=== PATIENT | male | born 1985 | race Caucasian/White ===

== ENCOUNTER 2016-12-24 10:26 | Emergency (ER) | payer MEDICAID ==
[~2016-12-24] VITALS: Ht 180.3 cm; Wt 130.2 kg
[2016-12-24 10:34] VITALS: BP_SYST 135
[2016-12-24 11:44] VITALS: BP_SYST 130
== END 2016-12-24 11:28 | disposition home or self-care (01) ==
LOC: SED 10:26
DX: K02.9 Dental caries, unspecified (principal); K04.7 Periapical abscess without sinus; E11.9 Type 2 diabetes mellitus without complications; Z90.89 Acquired absence of other organs
CPT/HCPCS: 99283

== ENCOUNTER 2017-02-21 12:03 | Emergency (ER) | payer MEDICAID ==
[~2017-02-21] VITALS: Ht 180.3 cm; Wt 127.0 kg
[2017-02-21 12:03] VITALS: BP_SYST 139
[2017-02-21] MEDS ORDERED: HYDROmorphone 1 MG INJ. 1 MG/ML AMPUL IVP ONE (13:00)
[2017-02-21] MEDS ORDERED: CEFAZOLIN 1 GM IVPB PREMIX 50 ML IV ONE (13:00)
[2017-02-21] MEDS ORDERED: VANCOMYCIN HCL 1,000 MG in NS 250 ML IV ONE (13:00)
[2017-02-21] MEDS ORDERED: ONDANSETRON HCL 4 MG/2 ML VIAL IVP ONE (13:00)
[2017-02-21] MEDS ORDERED: KETOROLAC TROMETHAMINE 30 MG VIAL IVP ONE (13:00)
[2017-02-21] MEDS ORDERED: VANCOMYCIN HCL 1000 MG/VIAL IV ONE (14:07)
[2017-02-21 16:16] VITALS: BP_SYST 135
== END 2017-02-21 16:16 | disposition home or self-care (01) ==
LOC: SED 12:03
DX: L03.211 Cellulitis of face (principal); E11.9 Type 2 diabetes mellitus without complications; Z88.8 Allergy status to other drugs, medicaments and biological substances
CPT/HCPCS: 96365; 96368; 96375; 99284; J0690; J1170; J1885; J2405; J3370; J7050

== ENCOUNTER 2020-11-09 07:15 | Emergency (ER) | payer MEDICAID, OTHER ==
[~2020-11-09] VITALS: Ht 180.3 cm; Wt 137.4 kg
[2020-11-09 07:23] VITALS: BP_SYST 154
[2020-11-09] MEDS ORDERED: IBUPROFEN 600 MG TABLET PO ONE (07:45)
[2020-11-09] MEDS ORDERED: HYDR-3917 PO (07:45)
[2020-11-09] MEDS ORDERED: MORPHINE SULFATE 10 MG/ML VIAL IM ONE (07:45)
[2020-11-09] MEDS ORDERED: CYCL-10 PO (07:45)
[2020-11-09] MEDS ORDERED: IBUP-1969 PO (07:45)
[2020-11-09 08:31] VITALS: BP_SYST 154
== END 2020-11-09 08:38 | disposition home or self-care (01) ==
LOC: SED 07:15
DX: M54.42 Lumbago with sciatica, left side (principal); E11.9 Type 2 diabetes mellitus without complications; Z88.8 Allergy status to other drugs, medicaments and biological substances; Z79.899 Other long term (current) drug therapy
CPT/HCPCS: 72100; 96372; 99283; J2270